=== PATIENT | female | born 2000 | race Caucasian/White ===

== ENCOUNTER → 2020-07-12 12:06 | Outpatient (BNVA) | payer OTHER, SELFPAY | PROVIDERS: PCP Nurse Practitioner Family; Visit Provider Nurse Practitioner Women's Health | DX: Z11.3 Encounter for screening for infections with a predominantly sexual mode of transmission (principal); Z01.419 Encounter for gynecological examination (general) (routine) without abnormal findings; Z30.9 Encounter for contraceptive management, unspecified; Z30.016 Encounter for initial prescription of transdermal patch hormonal contraceptive device; Z71.89 Other specified counseling | CPT/HCPCS: 87491; 87591; 87661; 88175 ==